=== PATIENT | male | born 1985 | race African-American/Black ===

== ENCOUNTER 2020-01-24 12:06 | Emergency (ER) | payer SELFPAY ==
[~2020-01-24] VITALS: Ht 172.7 cm; Wt 72.7 kg
[~2020-01-24 12:06] MED LIST: AMOXICILLIN500 MG OR; AMOXICILLIN500 MG PO; AMOXICILLIN875 MG OR; DENAVIR1 % EX; MUCINEX600 MG OR; NO MEDS; VALTREX1 GM PO; ZPAK PO
[2020-01-24 12:36] LABS: HEMATOCRIT 37.8 % (39.0-50.0); HEMOGLOBIN 12.9 g/dl (14.0-18.0); IMMATURE GRANULOCYTES 0.2 % (0.0-5.0); MEAN CELL VOLUME 92.4 fL CALC (80.0-100.0); MEAN CORPUSCULAR HGB 31.5 pG CALC (26.0-32.0); MEAN CORPUSCULAR HGB CONC 34.1 g/dL CAL (32.0-36.0); NEUT# 3.44 thou/uL (1.82-7.42); RED BLOOD COUNT 4.09 mill/uL (4.70-6.10); RED CELL DISTRI WIDTH 13.3 % (11.5-15.5)
[2020-01-24 12:54] LABS: ALBUMIN 3.5 g/dL (3.2-5.0); ALKALINE PHOSPHATASE 69 u/l (38-126); ANION GAP 7 (6-22 (CALC)); BILIRUBIN, TOTAL 0.4 mg/dL (0.0-1.4); BUN 28 mg/dL (9-20); BUN/CREATININE RATIO 32 (12-20 (CALC)); CARBON DIOXIDE 32 mmol/l (22-30); CHLORIDE 104 mmol/l (95-108); CREATININE 0.9 mg/dL (0.7-1.3); ETHYL ALCOHOL 0 mg/dl (0-30); GFR > 60 ML/MIN (>=60 (CALC)); GFR FOR AFR.AMER. > 60 ML/MIN (>=60 (CALC)); SODIUM 139 mmol/l (137-146); TOTAL PROTEIN 6.2 g/dL (6.3-8.2)
[2020-01-24 12:59] LABS: SGOT/AST 116 u/l (17-59)
[2020-01-24 13:08] LABS: URINE BILIRUBIN - DIPSTICK NEGATIVE (NEGATIVE); URINE BLOOD DIPSTICK NEGATIVE (NEGATIVE); URINE COLOR YELLOW; URINE GLUCOSE - DIPSTICK NEGATIVE (NEGATIVE); URINE KETONE NEGATIVE (NEGATIVE); URINE LEUK ESTERASE NEGATIVE (NEGATIVE); URINE NITRITE - DIPSTICK NEGATIVE (Negative); URINE PROTEIN - DIPSTICK NEGATIVE (NEG-TRACE); URINE SPECIFIC GRAVITY 1.025; URINE UROBILINOGEN - DIPSTICK 0.2 E.U./dL (0.2)
[2020-01-24 16:45] VITALS: BP 124/88
== END 2020-01-24 16:52 | disposition home or self-care (01) | DRG 897 ==
LOC: ED 12:06
PROVIDERS: Student in an Organized Health Care Education/Training Program
DX: F15.129 Other stimulant abuse with intoxication, unspecified (principal); I10 Essential (primary) hypertension; F17.210 Nicotine dependence, cigarettes, uncomplicated

== ENCOUNTER 2020-04-26 13:00 | Emergency (ER) | payer SELFPAY ==
[~2020-04-26] VITALS: Ht 167.6 cm; Wt 72.0 kg
[2020-04-26 13:46] LABS: HEMATOCRIT 40.9 % (39.0-50.0); HEMOGLOBIN 13.3 g/dl (14.0-18.0); IMMATURE GRANULOCYTES 0.1 % (0.0-5.0); MEAN CELL VOLUME 92.7 fL CALC (80.0-100.0); MEAN CORPUSCULAR HGB 30.2 pG CALC (26.0-32.0); MEAN CORPUSCULAR HGB CONC 32.5 g/dL CAL (32.0-36.0); NEUT# 3.36 thou/uL (1.82-7.42); RED BLOOD COUNT 4.41 mill/uL (4.70-6.10); RED CELL DISTRI WIDTH 13.3 % (11.5-15.5)
[2020-04-26 13:54] LABS: ALBUMIN 4.1 g/dL (3.2-5.0); ALKALINE PHOSPHATASE 94 u/l (38-126); ANION GAP 11 (6-22 (CALC)); BILIRUBIN, TOTAL 0.5 mg/dL (0.0-1.4); BUN 25 mg/dL (9-20); BUN/CREATININE RATIO 35 (12-20 (CALC)); CARBON DIOXIDE 30 mmol/l (22-30); CHLORIDE 102 mmol/l (95-108); CREATININE 0.7 mg/dL (0.7-1.3); GFR > 60 ML/MIN (>=60 (CALC)); GFR FOR AFR.AMER. > 60 ML/MIN (>=60 (CALC)); POTASSIUM 3.9 mmol/l (3.5-5.1); SGOT/AST 47 u/l (17-59); SODIUM 138 mmol/l (137-146)
[2020-04-26 13:55] LABS: TOTAL PROTEIN 7.8 g/dL (6.3-8.2)
[2020-04-26 14:06] LABS: MYOGLOBIN 162 ng/mL (0 - 121)
[2020-04-26 15:42] LABS: URINE BILIRUBIN - DIPSTICK NEGATIVE (NEGATIVE); URINE BLOOD DIPSTICK NEGATIVE (NEGATIVE); URINE COLOR YELLOW; URINE GLUCOSE - DIPSTICK NEGATIVE (NEGATIVE); URINE KETONE NEGATIVE (NEGATIVE); URINE LEUK ESTERASE NEGATIVE (NEGATIVE); URINE NITRITE - DIPSTICK NEGATIVE (Negative); URINE PH 6.5 (4.5-8.0); URINE PROTEIN - DIPSTICK NEGATIVE (NEG-TRACE); URINE UROBILINOGEN - DIPSTICK 0.2 E.U./dL (0.2)
[2020-04-26] MEDS ORDERED: BACTRIM DS1 TAB PO (16:14)
[2020-04-26 16:19] VITALS: BP 161/100
== END 2020-04-26 16:33 | disposition home or self-care (01) | DRG 948 ==
LOC: ED 13:00
PROVIDERS: Emergency Medicine
DX: R53.1 Weakness (principal); S91.302A Unspecified open wound, left foot, initial encounter; I10 Essential (primary) hypertension; F17.200 Nicotine dependence, unspecified, uncomplicated; X58.XXXA Exposure to other specified factors, initial encounter

== ENCOUNTER 2020-05-11 13:44 | Emergency (ER) | payer SELFPAY ==
[~2020-05-11] VITALS: Ht 167.6 cm; Wt 61.0 kg
[~2020-05-11 13:44] MED LIST changes: +BACTRIM DS1 TAB PO
[2020-05-11 14:29] LABS: HEMATOCRIT 42.1 % (39.0-50.0); HEMOGLOBIN 13.6 g/dl (14.0-18.0); IMMATURE GRANULOCYTES 0.2 % (0.0-5.0); MEAN CELL VOLUME 91.5 fL CALC (80.0-100.0); MEAN CORPUSCULAR HGB 29.6 pG CALC (26.0-32.0); MEAN CORPUSCULAR HGB CONC 32.3 g/dL CAL (32.0-36.0); NEUT# 2.94 thou/uL (1.82-7.42); RED BLOOD COUNT 4.6 mill/uL (4.70-6.10); RED CELL DISTRI WIDTH 13.4 % (11.5-15.5)
[2020-05-11 14:42] LABS: ALKALINE PHOSPHATASE 82 u/l (38-126); BILIRUBIN, TOTAL 0.6 mg/dL (0.0-1.4); BUN 16 mg/dL (9-20); BUN/CREATININE RATIO 19 (12-20 (CALC)); CARBON DIOXIDE 27 mmol/l (22-30); CHLORIDE 98 mmol/l (95-108); CREATININE 0.8 mg/dL (0.7-1.3); ETHYL ALCOHOL 0 mg/dl (0-30); GFR > 60 ML/MIN (>=60 (CALC)); GFR FOR AFR.AMER. > 60 ML/MIN (>=60 (CALC)); SGOT/AST 82 u/l (17-59); SODIUM 135 mmol/l (137-146); TOTAL PROTEIN 7.7 g/dL (6.3-8.2)
[2020-05-11 14:44] LABS: ANION GAP 13 (6-22 (CALC))
[2020-05-11 15:08] LABS: MYOGLOBIN 614 ng/mL (0 - 121)
[2020-05-11 15:51] LABS: URINE BILIRUBIN - DIPSTICK NEGATIVE (NEGATIVE); URINE BLOOD DIPSTICK TRACE-LYSED (NEGATIVE); URINE COLOR YELLOW; URINE GLUCOSE - DIPSTICK NEGATIVE (NEGATIVE); URINE KETONE NEGATIVE (NEGATIVE); URINE LEUK ESTERASE NEGATIVE (NEGATIVE); URINE PROTEIN - DIPSTICK NEGATIVE (NEG-TRACE); URINE SPECIFIC GRAVITY 1.025; URINE UROBILINOGEN - DIPSTICK 0.2 E.U./dL (0.2)
[2020-05-11 15:53] LABS: URINE NITRITE - DIPSTICK NEGATIVE (Negative)
[2020-05-11] MEDS ORDERED: KEFLEX500 M1 PO ×2 (18:23→18:29)
[2020-05-11 18:47] VITALS: BP 173/94
--- NOTE | 2020-05-14 08:56 | NUR ---
PT WAS TRANSFERRED TO [facility] ON 05/11/20 FROM [facility]. PT WAS DISCHARGED FROM [facility] AND IS NOW AT [facility]. CULTURE SENSITIVITY WAS FAXED OVER TO [facility] ON 05/14/20. FAX [phone]
== END 2020-05-11 18:50 | DRG 880 ==
LOC: ED 13:44
PROVIDERS: Emergency Medicine
DX: R44.3 Hallucinations, unspecified (principal); S91.302A Unspecified open wound, left foot, initial encounter; S00.83XA Contusion of other part of head, initial encounter; F19.10 Other psychoactive substance abuse, uncomplicated; I10 Essential (primary) hypertension; F17.200 Nicotine dependence, unspecified, uncomplicated; X58.XXXA Exposure to other specified factors, initial encounter

== ENCOUNTER 2020-05-19 18:11 | Emergency (ER) | payer SELFPAY ==
[~2020-05-19] VITALS: Ht 167.6 cm; Wt 75.0 kg
[~2020-05-19 18:11] MED LIST changes: +KEFLEX500 M1 PO
[2020-05-19] MEDS ORDERED: GENTAK0.32 OD (18:46)
[2020-05-19] MEDS ORDERED: (None)3.5 GM OD (18:46)
[2020-05-19 18:50] VITALS: BP 176/91
== END 2020-05-19 18:57 | disposition home or self-care (01) | DRG 125 ==
LOC: ED 18:11
DX: H10.9 Unspecified conjunctivitis (principal); I10 Essential (primary) hypertension; F99 Mental disorder, not otherwise specified; F17.200 Nicotine dependence, unspecified, uncomplicated; Z59.0 Homelessness

== ENCOUNTER 2020-05-21 | Emergency (ER) | payer SELFPAY ==
[~2020-05-21] MED LIST changes: +(None)3.5 GM OD; +GENTAK0.32 OD
[2020-05-21 13:21] LABS: MEAN CELL VOLUME 91.5 fL CALC (80.0-100.0); MEAN CORPUSCULAR HGB 29.3 pG CALC (26.0-32.0); NEUT# 2.23 thou/uL (1.82-7.42); RED BLOOD COUNT 3.89 mill/uL (4.70-6.10); RED CELL DISTRI WIDTH 13.2 % (11.5-15.5)
[2020-05-21 13:23] LABS: HEMATOCRIT 35.6 % (39.0-50.0); HEMOGLOBIN 11.4 g/dl (14.0-18.0)
[2020-05-21 13:54] LABS: ALBUMIN 3.4 g/dL (3.2-5.0); ALKALINE PHOSPHATASE 74 u/l (38-126); ANION GAP 8 (6-22 (CALC)); BILIRUBIN, TOTAL 0.5 mg/dL (0.0-1.4); BUN 16 mg/dL (9-20); BUN/CREATININE RATIO 22 (12-20 (CALC)); CARBON DIOXIDE 32 mmol/l (22-30); CHLORIDE 103 mmol/l (95-108); CREATININE 0.7 mg/dL (0.7-1.3); ETHYL ALCOHOL 0 mg/dl (0-30); GFR > 60 ML/MIN (>=60 (CALC)); GFR FOR AFR.AMER. > 60 ML/MIN (>=60 (CALC)); LIPASE 232 u/l (23-300); MAGNESIUM 1.7 mg/dL (1.6-2.3); POTASSIUM 3.5 mmol/l (3.5-5.1); SGOT/AST 82 u/l (17-59); SODIUM 138 mmol/l (137-146); TOTAL PROTEIN 6.5 g/dL (6.3-8.2)
[2020-05-21 14:30] LABS: URINE BILIRUBIN - DIPSTICK NEGATIVE (NEGATIVE); URINE BLOOD DIPSTICK NEGATIVE (NEGATIVE); URINE COLOR YELLOW; URINE GLUCOSE - DIPSTICK NEGATIVE (NEGATIVE); URINE KETONE NEGATIVE (NEGATIVE); URINE LEUK ESTERASE NEGATIVE (NEGATIVE); URINE PROTEIN - DIPSTICK NEGATIVE (NEG-TRACE); URINE UROBILINOGEN - DIPSTICK 0.2 E.U./dL (0.2)
[2020-05-21 14:32] LABS: URINE NITRITE - DIPSTICK NEGATIVE (Negative)
== END 2020-05-21 21:00 | disposition designated cancer center or children's hospital (05) | DRG 885 ==
DX: F23 Brief psychotic disorder (principal); F15.129 Other stimulant abuse with intoxication, unspecified; H11.9 Unspecified disorder of conjunctiva; L98.8 Other specified disorders of the skin and subcutaneous tissue; I10 Essential (primary) hypertension; F17.200 Nicotine dependence, unspecified, uncomplicated; Z20.822 Contact with and (suspected) exposure to COVID-19

== ENCOUNTER 2020-06-14 | Emergency (ER) | payer SELFPAY ==
[2020-06-14 13:23] LABS: IMMATURE GRANULOCYTES 0.4 % (0.0-5.0); MEAN CELL VOLUME 91.1 fL CALC (80.0-100.0); MEAN CORPUSCULAR HGB 29.4 pG CALC (26.0-32.0); MEAN CORPUSCULAR HGB CONC 32.2 g/dL CAL (32.0-36.0); NEUT# 10.02 thou/uL (1.82-7.42); RED BLOOD COUNT 4.7 mill/uL (4.70-6.10); RED CELL DISTRI WIDTH 14.4 % (11.5-15.5)
[2020-06-14 13:25] LABS: HEMATOCRIT 42.8 % (39.0-50.0); HEMOGLOBIN 13.8 g/dl (14.0-18.0)
[2020-06-14 13:35] LABS: ALKALINE PHOSPHATASE 106 u/l (38-126); BUN 33 mg/dL (9-20); BUN/CREATININE RATIO 27 (12-20 (CALC)); CARBON DIOXIDE 29 mmol/l (22-30); CHLORIDE 94 mmol/l (95-108); CREATININE 1.2 mg/dL (0.7-1.3); ETHYL ALCOHOL 0 mg/dl (0-30); GFR > 60 ML/MIN (>=60 (CALC)); GFR FOR AFR.AMER. > 60 ML/MIN (>=60 (CALC)); SODIUM 132 mmol/l (137-146)
[2020-06-14 13:38] LABS: ALBUMIN 4.8 g/dL (3.2-5.0); ANION GAP 14 (6-22 (CALC)); POTASSIUM 5.3 mmol/l (3.5-5.1); SGOT/AST 161 u/l (17-59); TOTAL PROTEIN 8.4 g/dL (6.3-8.2)
[2020-06-16 08:19] LABS: URINE BILIRUBIN - DIPSTICK NEGATIVE (NEGATIVE); URINE BLOOD DIPSTICK NEGATIVE (NEGATIVE); URINE CLARITY CLEAR; URINE COLOR YELLOW; URINE GLUCOSE - DIPSTICK NEGATIVE (NEGATIVE); URINE KETONE NEGATIVE (NEGATIVE); URINE LEUK ESTERASE NEGATIVE (Negative); URINE NITRITE - DIPSTICK NEGATIVE (Negative); URINE PH 6.5 (4.5-8.0); URINE PROTEIN - DIPSTICK NEGATIVE (NEG-TRACE); URINE SPECIFIC GRAVITY 1.025; URINE UROBILINOGEN - DIPSTICK 0.2 E.U./dL (0.2)
== END 2020-06-16 12:05 | disposition home or self-care (01) | DRG 897 ==
DX: F15.151 Other stimulant abuse with stimulant-induced psychotic disorder with hallucinations (principal); I10 Essential (primary) hypertension; F17.200 Nicotine dependence, unspecified, uncomplicated
CPT/HCPCS: S0166

== ENCOUNTER 2020-06-19 07:07 | Emergency (ER) | payer SELFPAY ==
[2020-06-19 08:07] LABS: HEMATOCRIT 41.1 % (39.0-50.0); HEMOGLOBIN 13.3 g/dl (14.0-18.0); IMMATURE GRANULOCYTES 0.1 % (0.0-5.0); MEAN CELL VOLUME 90.7 fL CALC (80.0-100.0); MEAN CORPUSCULAR HGB 29.4 pG CALC (26.0-32.0); MEAN CORPUSCULAR HGB CONC 32.4 g/dL CAL (32.0-36.0); NEUT# 4.79 thou/uL (1.82-7.42); RED BLOOD COUNT 4.53 mill/uL (4.70-6.10); RED CELL DISTRI WIDTH 13.9 % (11.5-15.5)
[2020-06-19 08:23] LABS: ALBUMIN 4.2 g/dL (3.2-5.0); ALKALINE PHOSPHATASE 92 u/l (38-126); ANION GAP 11 (6-22 (CALC)); BILIRUBIN, TOTAL 0.7 mg/dL (0.0-1.4); BUN 22 mg/dL (9-20); BUN/CREATININE RATIO 19 (12-20 (CALC)); CARBON DIOXIDE 25 mmol/l (22-30); CHLORIDE 105 mmol/l (95-108); CREATININE 1.2 mg/dL (0.7-1.3); ETHYL ALCOHOL 0 mg/dl (0-30); GFR > 60 ML/MIN (>=60 (CALC)); GFR FOR AFR.AMER. > 60 ML/MIN (>=60 (CALC)); SGOT/AST 81 u/l (17-59); SODIUM 137 mmol/l (137-146); TOTAL PROTEIN 7.5 g/dL (6.3-8.2)
[2020-06-19 08:25] LABS: POTASSIUM 4.1 mmol/l (3.5-5.1)
[2020-06-19 08:42] VITALS: BP 156/90
== END 2020-06-19 08:44 | disposition short-term general hospital (02) | DRG 605 ==
LOC: ED 07:07
DX: S90.811A Abrasion, right foot, initial encounter (principal); F22 Delusional disorders; F20.9 Schizophrenia, unspecified; I10 Essential (primary) hypertension; F17.200 Nicotine dependence, unspecified, uncomplicated; X78.8XXA Intentional self-harm by other sharp object, initial encounter

== ENCOUNTER 2024-04-18 09:49 | Inpatient (IN) | payer SELFPAY ==
[~2024-04-18] VITALS: Ht 167.6 cm; Wt 75.9 kg
[2024-04-18] VITALS (50 sets, daily range): BP systolic 109–178; BP diastolic 79–129
[2024-04-18] MEDS ORDERED: HALOPERIDOL LACTATE 5 MG/ML SDV ONE (09:55)
[2024-04-18] MEDS ORDERED: HALOPERIDOL LACTATE 5 MG/ML SDV IM ONE (09:55)
[2024-04-18] MEDS ORDERED: DiphenhydrAMINE HCL 50 MG/ML SDV IM ONE (09:55)
[2024-04-18] MEDS ORDERED: MIDAZOLAM HCL 2 MG/2 ML VIAL IM ONE (09:55)
--- NOTE | 2024-04-18 10:07 | NUR ---
PT ESCORTED TO BATHROOM STATES THAT THERE WERE BUGS IN BATHROOM THAT WERE BITING HIM
--- NOTE | 2024-04-18 10:07 | NUR ---
PT WAS BROUGHT TO ROOM 7 BY EMS
--- NOTE | 2024-04-18 10:15 | NUR ---
CODE KIM CALLED, POLICE DEPARTMENT NOTIFED.
[2024-04-18 10:22] LABS: BASO% 0.4 % (0-3); EOS% 0.6 % (0-8); HEMATOCRIT 43.2 % (39.0-50.0); HEMOGLOBIN 14.7 g/dl (14.0-18.0); IMMATURE GRANULOCYTES 0.1 % (0.0-5.0); MEAN CELL VOLUME 91.7 fL CALC (80.0-100.0); MEAN CORPUSCULAR HGB 31.2 pG CALC (26.0-32.0); MONO% 12.3 % (2-13); NEUT# 6.23 thou/uL (1.82-7.42); NEUT% 73.6 % (42-76); RED BLOOD COUNT 4.71 mill/uL (4.70-6.10); RED CELL DISTRI WIDTH 11.7 % (11.5-15.5)
[2024-04-18 10:36] LABS: ALBUMIN 4.7 g/dL (3.2-5.0); ALKALINE PHOSPHATASE 80 u/l (38-126); ANION GAP 13 (6-22 (CALC)); CARBON DIOXIDE 29 mmol/l (22-30); CHLORIDE 104 mmol/l (95-108); CREATININE 1.4 mg/dL (0.7-1.3); ESTIMATED GFR 66 ML/MIN (>=90 (CALC)); ETHYL ALCOHOL 0 mg/dl (0-30); LIPASE 73 u/l (23-300); POTASSIUM 4.1 mmol/l (3.5-5.1); SODIUM 142 mmol/l (137-146); TOTAL PROTEIN 8.1 g/dL (6.3-8.2)
[2024-04-18] MEDS ORDERED: SODIUM CHLORIDE 0.9% 1,000 ML IV ONE ×4 (10:45→12:55)
[2024-04-18 10:52] LABS: BILIRUBIN, TOTAL 1.7 mg/dL (0.2-1.3); BUN 47 mg/dL (9-20); BUN/CREATININE RATIO 34 (12-20 (CALC)); SGOT/AST 1150 u/l (17-59)
[2024-04-18 11:11] LABS: URINE BLOOD DIPSTICK Large (NEGATIVE); URINE GLUCOSE - DIPSTICK Negative (NEGATIVE); URINE KETONE Negative (NEGATIVE); URINE LEUK ESTERASE Negative (NEGATIVE); URINE NITRITE - DIPSTICK Negative (Negative); URINE PH 5.5 (4.5-8.0); URINE PROTEIN - DIPSTICK >=300 mg/dL (NEG-TRACE); URINE SPECIFIC GRAVITY >=1.030; URINE UROBILINOGEN - DIPSTICK 0.2 E.U./dL (0.2)
[2024-04-18 11:12] LABS: URINE COLOR Dark yellow
[2024-04-18 11:17] LABS: URINE WBC 0-2 WBC/hpf (0-5)
[2024-04-18 11:18] LABS: URINE AMORPH SEDIMENT MANY hpf (NONE-FER)
--- NOTE | 2024-04-18 12:21 | NUR ---
PATIENT RESTING EYES CLOSED VSS.
--- NOTE | 2024-04-18 12:40 | NUR ---
PATIENT AWAITING SITTER
--- NOTE | 2024-04-18 14:52 | NUR ---
PATIENT REMAINS FLIGHT RISK, SUMO WRESTLER PRESENT BEDSIDE WITH NURSING. RADIOLOGY UNABLE TO TAKE PATIENT TO CT CURRENTLY. PATIENT MEDICATED PER DR OSORIO.
--- NOTE | 2024-04-18 15:37 | NUR ---
PATIENT TO RADIOLOGY WITH SECURITY AND ED REINSURANCE ANALYST
--- NOTE | 2024-04-18 16:25 | NUR ---
PATIENT RESTING EYES CLOSED VSS
--- NOTE | 2024-04-18 17:25 | NUR ---
Reassessment of patient completed. No distress noted.
--- NOTE | 2024-04-18 18:05 | NUR ---
SITTER ARRIVES BEDSIDE WITH PATIENT
--- NOTE | 2024-04-18 19:00 | NUR ---
RECIEVED REPORT FROM BRITTANY VINES. PT HAS SITTER AT BEDSIDE AND WILL BE ADMITTED TO THE HOSPITAL.
--- NOTE | 2024-04-18 19:03 | NUR ---
REPORT TO DILIP VINES
--- NOTE | 2024-04-18 19:15 | NUR ---
REPORT GIVEN TO KRISTOFER VINES.
--- NOTE | 2024-04-18 19:30 | NUR ---
RECD REPORT FROM ED RN ON HOLDING ASIF ACT ED ROOM 7 ADMITTED TO ICU OVERFLOW WITH PENDING TRANSFER TO ICU BED 7. PT IS AGITATED BUT AGREEABLE AND REACTS APPROPRIATELY TO FIRM DIRECTION AND FIRM TONE. PT AAOX4 WALKIE TALKING AMBULATORY REPORTING NO INJURIES OR ISSUES AT THIS TIME. DENIES PAIN. NO S/SX OF DISTRESS OR COMPLICATION NOTED AT THIS TIME. EDUCATION PROVIDED TO PATIENT ON CURRENT ASIF ACT HOLDING STATUS WITH SITTER BEDSIDE. PT GIVEN FIRM DIRECTIONS PT AGREEABLE AND COMPLIANT. YELLS AND HAS MOMENTS OF AGGRESSION REDIRECTABLE WITH FIRM DIRECTIVES. IV SITE PATENT. (+) FLUSHED FOR PATENCY. NSR ON TELEMETRY BP STABLE NO ISSUES AT THIS TIME. AWAITING BED IN ICU. ADMISSION COMPLETED BY NIGHT SALES MERCHANDISE ASSOCIATE.
[2024-04-18] MEDS ORDERED: ACETAMINOPHEN 325 MG/TAB PO PRN (19:55)
[2024-04-18] MEDS ORDERED: MAGNESIUM HYDROXIDE 30 ML UDC PO PRN (19:55)
[2024-04-18] MEDS ORDERED: SODIUM CHLORIDE 0.9% 1,000 ML IV PRN (19:55)
[2024-04-18] MEDS ORDERED: ENOXAPARIN SODIUM 40 MG/0.4 ML SYR SC SCH (21:00)
--- NOTE | 2024-04-18 22:28 | NUR ---
PROVIDED MEAL FOR PT PER REQUEST. PT IS AGREEABLE AND REDIRECTABLE AT THIS TIME. HAS MOMENTS OF INTENSE AGITATION REQUIRING FIRM TONE HAS (+) EFFECT. AWAITING TRANSFER TO ICU BED 7 WITH SITTER BEDSIDE AND REPORT TO BE GIVEN TO RECEIVING DAY CARE ASSISTANT ON TRANSFER.
--- NOTE | 2024-04-18 23:25 | NUR ---
transferred per wc to icu 7. pt has periods of aggitation redirected with armstrong tone.
--- NOTE | 2024-04-19 02:00 | NUR ---
eyes closed. no distress. east act cont. sitter @ bedside.
--- NOTE | 2024-04-19 04:00 | NUR ---
eyes closed. no distress. ardiac monitor shows sinus rhythm.
--- NOTE | 2024-04-19 05:00 | NUR ---
lab here. pt refused blood draw.
--- NOTE | 2024-04-19 06:00 | NUR ---
awake. sitting on side of bed. water given per request. asked about breakfast. questions answered.
--- NOTE | 2024-04-19 07:00 | NUR ---
Report received from x ray technician nurse. Patient is sleeping, does not appear to be in any distress, NSR on tele monitor, sitter at bedside as patient is a east act. All needs addressed.
[2024-04-19 08:00] VITALS: BP 132/80
[2024-04-19 08:11] LABS: HEMATOCRIT 37.3 % (39.0-50.0); MEAN CELL VOLUME 94.4 fL CALC (80.0-100.0); MEAN CORPUSCULAR HGB 31.6 pG CALC (26.0-32.0); MEAN CORPUSCULAR HGB CONC 33.5 g/dL CAL (32.0-36.0); RED BLOOD COUNT 3.95 mill/uL (4.70-6.10)
[2024-04-19 08:24] LABS: HEMOGLOBIN 12.5 g/dl (14.0-18.0)
[2024-04-19 08:28] LABS: ALKALINE PHOSPHATASE 62 u/l (38-126); ANION GAP 5 (6-22 (CALC)); BILIRUBIN, TOTAL 1.2 mg/dL (0.2-1.3); CARBON DIOXIDE 30 mmol/l (22-30); CHLORIDE 109 mmol/l (95-108); CREATININE 0.7 mg/dL (0.7-1.3); ESTIMATED GFR 121 ML/MIN (>=90 (CALC)); POTASSIUM 3.8 mmol/l (3.5-5.1); SGOT/AST 516 u/l (17-59); SODIUM 140 mmol/l (137-146)
[2024-04-19 08:45] LABS: ALBUMIN 3.2 g/dL (3.2-5.0); BUN 27 mg/dL (9-20); BUN/CREATININE RATIO 39 (12-20 (CALC)); TOTAL PROTEIN 5.9 g/dL (6.3-8.2)
[2024-04-19 09:13] LABS: CPK > 9600 u/l (55-170)
[2024-04-19 12:00] VITALS: BP 132/76
--- NOTE | 2024-04-19 12:30 | NUR ---
Dr Faye at bedside and is going to resend east act. Patient is A&Ox4, on room air. All needs addressed, call light within reach.
--- NOTE | 2024-04-19 16:00 | NUR ---
Patient moved to med surg room 263 in bed without issue. Patient is A&Ox4, on room air, VS WNL. All needs addressed, call light within reach.
--- NOTE | 2024-04-19 16:15 | NUR ---
Patient is refusing IV fluids. Educated him on importance of hydration due to his current lab values. Provided patient with oral hydration.
[2024-04-19 16:16] VITALS: BP 149/105
[2024-04-19 18:55] VITALS: BP 144/90
--- NOTE | 2024-04-19 19:51 | NUR ---
PATIENT OBSERVED TO BE RESTING IN BED WITH EYES CLOSED. BEDSIDE ASSESSMENT COMPLETE. EQUAL UNLABORED RESP. NO VISUAL SIGNS OF DISTRESS. PATIENT STATED " DONT BE GIVEING ME ANY NEEDLES, I DONT WANT NOBODY PICKING AT ME". I EDUCATED PATIENT ON HYDRATION, AND LOVENOX. PATIENT UNDERSTOOD. BED AT LOWEST POSITION. CALL LIGHT WITH IN REACH.
[2024-04-19 20:00] VITALS: BP 144/90
--- NOTE | 2024-04-20 00:45 | NUR ---
PATIENT OBSERVED TO BE RESTING IN BED WITH EYES CLOSED. EQUAL UNLABORED RESP. NO VISUAL SIGNS OF DISTRESS. BED AT LOWEST POSITION. CALL LIGHT WITH IN REACH.
--- NOTE | 2024-04-20 04:33 | NUR ---
PATIENTY OBSERVED TO BE RESTING IN BED ON RIGHT SIDE. UNLABORED RESP. NO VISUAL SIGNS OF DISTRESS. PATIENT RESPONDS TO VERBAL STIMULI. CAN MAKE NEEDS KNOWN. NONE NEEDED AT THIS TIME. BED AT LOWEST POSITION. CALL LIGHT WITH IN REACH.
[2024-04-20 05:22] VITALS: BP 141/80
--- NOTE | 2024-04-20 07:15 | NUR ---
Report received from manager shift nurse. Patient is sleeping, does not appear to be in any distress. VS WNL, patient is refusing all meds and IV fluids. All needs addressed, call light within reach.
[2024-04-20 07:54] VITALS: BP 159/91
[2024-04-20 08:33] LABS: ALBUMIN 3.1 g/dL (3.2-5.0); CREATININE 0.7 mg/dL (0.7-1.3); TOTAL PROTEIN 5.9 g/dL (6.3-8.2)
[2024-04-20 09:14] LABS: BILIRUBIN, TOTAL 0.6 mg/dL (0.2-1.3)
--- NOTE | 2024-04-20 11:10 | NUR ---
Discharge instructions given. Patient verbalizes understanding of instructions. Patient is discharged in stable condition to Home, patient left unit with staff. Mathew called for patient as he had no one to come pick him up. All belongings sent with pt. IV removed.
--- NOTE | 2024-04-20 12:10 | NUR ---
patient voided x2 before discharged.
== END 2024-04-20 11:19 | disposition home or self-care (01) | DRG 558 ==
LOC: ED 09:49 → ED-I 16:10 → ED 16:19 → ED-I 16:20 → ICU 16:20 → MS2 04-19 15:56
PROVIDERS: Family Medicine; Nurse Practitioner Family; ADMIT Internal Medicine; ATTEND Internal Medicine
DX: M62.82 Rhabdomyolysis (principal); N17.9 Acute kidney failure, unspecified; F15.151 Other stimulant abuse with stimulant-induced psychotic disorder with hallucinations; F16.151 Hallucinogen abuse with hallucinogen-induced psychotic disorder with hallucinations; F12.151 Cannabis abuse with psychotic disorder with hallucinations; I10 Essential (primary) hypertension; Z78.1 Physical restraint status
CPT/HCPCS: J1200; J1630; J1650; Q9967